=== PATIENT | female | born 1970 | race Caucasian/White ===

== ENCOUNTER → 2016-06-15 | Outpatient (CLI) | payer OTHER ==
[~2016-06-15] MED LIST: CIPRO250 MG PO; CYMBALTA20 M1 PO; LEVAQUIN750 M1 PO; MOBIC7.5 MG PO; Motrin,Rufen800 MG PO; PROTONIX40 MG PO; SUBOXONE 8 MG-1 EACH SL; VICODIN 500 MG-1 TAB PO
[2016-06-15 12:53] LABS: HEMATOCRIT 43.3 % (37.0-47.0); HEMOGLOBIN 14.3 g/dl (12.0-16.0); MEAN CELL VOLUME 94.3 fl (81.0-99.0); MEAN CORPUSCULAR HGB 31.2 pg (27.0-31.0); MEAN PLATELET VOLUME 9.3 fl (9.6-12.3); RED BLOOD COUNT 4.59 10*6/uL (4.10-5.10); RED CELL DISTRI WIDTH 12.6 % (0-14.5); WHITE BLOOD COUNT 6.2 10*3/uL (4.8-10.8)
[2016-06-15 13:02] LABS: URINE AMPHETAMINES < 1000 (1000ng/ml); URINE BARBITURATES < 200 (200ng/ml); URINE COCAINE < 300 (300ng/ml)
[2016-06-15 13:25] LABS: ALBUMIN 4.1 gm/dl (3.1-4.5); ALKALINE PHOSPHATASE 46 U/L (45-117); BILIRUBIN, TOTAL 0.3 mg/dl (0.2-1.0); BUN 9 mg/dl (7-24); CARBON DIOXIDE 27 mmol/L (21-32); CHLORIDE 104 mmol/L (98-107); CHOLESTEROL 225 mg/dL (<200); EST GLOM FILT AFRICAN AMERICAN > 60 ml/min; GLUCOSE 85 mg/dL (65-99); HDL CHOLESTEROL 58 mg/dl (40-60); LDL CHOLESTEROL 133 mg/dL (9-159); POTASSIUM 4.2 mmol/L (3.5-5.1); SGOT/AST 21 IU/L (3-35); SGPT/ALT 32 U/L (12-78); SODIUM 140 mmol/L (136-145); TOTAL PROTEIN 7.4 gm/dL (6.4-8.2); TRIGLYCERIDES 169 mg/dl (<150); VLDL CHOLESTEROL 34 mg/dL (6-40)
[2016-06-15 14:02] LABS: VITAMIN D, 25-HYDROXY 8.1 ng/mL (30-100)
== END | disposition home or self-care (01) ==
LOC: LAB 12:27
PROVIDERS: Internal Medicine
DX: B19.20 Unspecified viral hepatitis C without hepatic coma (principal); K21.9 Gastro-esophageal reflux disease without esophagitis; E55.9 Vitamin D deficiency, unspecified; E78.00 Pure hypercholesterolemia, unspecified; R53.83 Other fatigue; Z79.01 Long term (current) use of anticoagulants

== ENCOUNTER → 2016-06-28 | Outpatient (CLI) | payer OTHER ==
[2016-06-28 16:21] LABS: HEMATOCRIT 42.1 % (37.0-47.0); HEMOGLOBIN 13.9 g/dl (12.0-16.0); MEAN CELL VOLUME 93.1 fl (81.0-99.0); MEAN CORPUSCULAR HGB 30.8 pg (27.0-31.0); MEAN PLATELET VOLUME 9.3 fl (9.6-12.3); PLATELET COUNT AUTOMATED 292 10*3/uL (130-400); RED BLOOD COUNT 4.52 10*6/uL (4.10-5.10); RED CELL DISTRI WIDTH 12.3 % (0-14.5); WHITE BLOOD COUNT 6.9 10*3/uL (4.8-10.8)
[2016-06-28 16:35] LABS: URINE AMPHETAMINES < 1000 (1000ng/ml); URINE BARBITURATES < 200 (200ng/ml); URINE COCAINE < 300 (300ng/ml)
[2016-06-28 16:36] LABS: ALBUMIN 4.4 gm/dl (3.1-4.5); ALKALINE PHOSPHATASE 48 U/L (45-117); BILIRUBIN, DIRECT < 0.1 mg/dL (0.0-0.2); BILIRUBIN, TOTAL 0.4 mg/dl (0.2-1.0); BUN 8 mg/dl (7-24); CARBON DIOXIDE 28 mmol/L (21-32); CHLORIDE 107 mmol/L (98-107); EST GLOM FILT AFRICAN AMERICAN > 60 ml/min; GLUCOSE 91 mg/dL (65-99); POTASSIUM 4.2 mmol/L (3.5-5.1); SGOT/AST 12 IU/L (3-35); SGPT/ALT 25 U/L (12-78); SODIUM 141 mmol/L (136-145)
[2016-06-28 16:41] LABS: ATYPICAL LYMPHS 13 % (0-0); BASOPHIL # 0.1 10*3/uL (0-0.1); BASOPHILS 1 % (0-1); EOSINOPHIL # 0.4 10*3/uL (0-0.4); EOSINOPHILS 6 % (1-4); LYMPHOCYTE # 4.4 10*3/uL (1.3-4.4); MONOCYTE # 0.2 10*3/uL (0.1-1.0); NEUTROPHIL # 1.8 10*3/uL (2.3-7.9); NEUTROPHILS 26 % (47-73); PLATELET SUFFICIENCY NORMAL (NORMAL); TOTAL CELLS COUNTED 100 #CELLS
[2016-06-29 20:09] LABS: HEPATITIS C QUANTITATION 5760 IU/mL (.)
== END | disposition home or self-care (01) ==
LOC: LAB 15:51
PROVIDERS: Internal Medicine Gastroenterology
DX: B19.20 Unspecified viral hepatitis C without hepatic coma (principal)

== ENCOUNTER → 2016-11-10 | Outpatient (CLI) | payer OTHER ==
[2016-11-10 16:40] LABS: URINE AMPHETAMINES < 1000 (1000ng/ml); URINE BARBITURATES < 200 (200ng/ml); URINE COCAINE < 300 (300ng/ml)
== END | disposition home or self-care (01) ==
LOC: LAB 16:13
PROVIDERS: Internal Medicine
DX: F11.20 Opioid dependence, uncomplicated (principal)

== ENCOUNTER → 2017-05-03 | Outpatient (CLI) | payer OTHER ==
[2017-05-03 12:29] LABS: URINE AMPHETAMINES < 1000 (1000ng/ml); URINE BARBITURATES < 200 (200ng/ml); URINE BENZODIAZEPINES < 200 (200ng/ml); URINE CANNABINOIDS (THC) < 50 (50ng/ml); URINE COCAINE < 300 (300ng/ml); URINE METHADONE < 300 (300ng/ml); URINE OPIATES < 300 (300ng/ml); URINE PHENCYCLIDINE < 25 (25ng/ml)
== END | disposition home or self-care (01) ==
LOC: LAB 11:29
PROVIDERS: Internal Medicine
DX: F11.20 Opioid dependence, uncomplicated (principal)

== ENCOUNTER → 2017-11-27 | Outpatient (CLI) | payer OTHER ==
[2017-11-27 15:03] LABS: URINE AMPHETAMINES < 1000 (1000ng/ml); URINE BARBITURATES < 200 (200ng/ml); URINE BENZODIAZEPINES < 200 (200ng/ml); URINE CANNABINOIDS (THC) < 50 (50ng/ml); URINE COCAINE > 300 (300ng/ml); URINE METHADONE < 300 (300ng/ml); URINE OPIATES < 300 (300ng/ml)
[2017-11-27 15:05] LABS: URINE PHENCYCLIDINE < 25 (25ng/ml)
[2017-12-08 14:08] LABS: BENZOYLECGONINE (GC/MS) 1015 ng/mL (Cutoff=150)
== END | disposition home or self-care (01) ==
LOC: LAB 14:17
PROVIDERS: Internal Medicine
DX: F11.20 Opioid dependence, uncomplicated (principal)

== ENCOUNTER 2019-08-17 04:36 | Inpatient (IN) | payer OTHER ==
[2019-08-17] VITALS (7 sets, daily range): BP systolic 100–132; BP diastolic 61–87
[~2019-08-17] VITALS: Ht 172.7 cm; Wt 68.2 kg
--- NOTE | 2019-08-17 04:38 | NUR ---
PT PLACED ON BIAP /. 40% TOLERATING WELL. BREATHING TREATMENTS GIVEN IN LINE
--- NOTE | 2019-08-17 04:44 | NUR ---
Pt placed on bipap with settings of iap 14, eap of 7 and 40 percent fio2.
--- NOTE | 2019-08-17 04:53 | NUR ---
BIPAP CHANGED TO 12/6 PER ORDER
--- NOTE | 2019-08-17 04:57 | NUR ---
Pt states she is breathing better after being placed on bipap.
--- NOTE | 2019-08-17 04:58 | NUR ---
Pt has mutiple scabs all over legs , arms and back.No drainage noted from scabs and scabs are pink /red in color.
[2019-08-17 05:33] LABS: ARTERIAL BLOOD GAS PH 7.279 (7.35-7.45)
[2019-08-17 05:34] LABS: ACT PARTIAL THROMBO TIME 26.8 SECONDS (20.0-32.1)
[2019-08-17 05:39] LABS: ALBUMIN 3.6 gm/dl (3.1-4.5); BUN 13 mg/dl (7-24); CHLORIDE 110 mmol/L (98-107); CREATININE 0.74 mg/dL (0.55-1.02); POTASSIUM 3.8 mmol/L (3.5-5.1); SGOT/AST 14 IU/L (3-35); SGPT/ALT 18 U/L (12-78); SODIUM 139 mmol/L (136-145); TOTAL PROTEIN 7.4 gm/dL (6.4-8.2)
[2019-08-17 05:45] LABS: ALKALINE PHOSPHATASE 41 U/L (45-117); TROPONIN I < 0.015 ng/ml (<0.045)
[2019-08-17 05:53] LABS: BASO # 0.1 10*3/uL (0.0-0.1); BASO % 1.2 % (0.0-1.0); EOS # 1.4 10*3/uL (0.0-0.4); EOS % 13.9 % (1.0-4.0); HEMATOCRIT 41.4 % (37.0-47.0); LYMPH # 4.4 10*3/uL (1.3-4.4); LYMPH % 42.2 % (27.0-41.0); MEAN CELL VOLUME 97.2 fl (81.0-99.0); MEAN CORPUSCULAR HGB 30.5 pg (27.0-31.0); MEAN CORPUSCULAR HGB CONC 31.4 g/dl (33.0-37.0); MEAN PLATELET VOLUME 10.3 fl (9.6-12.3); MONO # 0.9 10*3/uL (0.1-1.0); MONO % 9.1 % (3.0-9.0); NEUT # 3.4 10*3/uL (2.3-7.9); NEUT % 33.3 % (47.0-73.0); PLATELET COUNT AUTOMATED 309 10*3/uL (130-400); RED BLOOD COUNT 4.26 10*6/uL (4.10-5.10); RED CELL DISTRI WIDTH 14.7 % (0-14.5); WHITE BLOOD COUNT 10.3 10*3/uL (4.8-10.8)
--- NOTE | 2019-08-17 06:07 | NUR ---
SPO2 100%. O2 DECREASED TO 30%
--- NOTE | 2019-08-17 08:00 | NUR ---
A 49, admitted to 5E, under the services of REINA Du DO with a diagnosis of COPD EXACERBATION . Chief complaint is SHORTNESS OF BREATH. Patient arrived via bed from ER. Monitor applied. Initial assessment completed. Vital signs taken and recorded. REINA DU DO notified of admission to the unit. Orders received. See assessment for past medical history, medications and allergies. Patient and/or family oriented to unit. [facility] visitation policy reviewed. Clothing/patient valuable form completed. SAÚL IRIZARRY
--- NOTE | 2019-08-17 08:20 | NUR ---
UNABLE [facility]ONCILE MEDS. PT CURRENTLY ON BIPAP 02/28 @ 30%.SPO2 99%.
[2019-08-17 09:29] LABS: ARTERIAL BLOOD GAS PH 7.321 (7.35-7.45)
--- NOTE | 2019-08-17 09:31 | NUR ---
08:00 PT ARRIVED FROM DEM TO 531. PT ON 3 L NC. SPO2 100%. PT SOB WITH RR APPRX 28-30. PT PLACED ON BIPAP 02/28 30%. TOERATED WELL. NO SOB. RESPS REGULAR AND UNLABORED. PT RESTING COMFORTABLY. DA GIVEN. BBSs WITH SCATTERED RHONCHI. GOOD AERATION. ABG TO FOLLOW. PT PLACED ON PULSE OXIMETER MONITOR.
--- NOTE | 2019-08-17 09:50 | NUR ---
DR MENDOZA NOTIFIED OF NEW CONSULT FOR EXACERBATION OF COPD.ORDERS RECIEVED FOR BIPAP 10/01 AND ABG'S 2 HRS FOLLOWING CHANGE.
--- NOTE | 2019-08-17 12:06 | NUR ---
10:30 PT ON BIPAP. PRESSURES INCREASED TO 18/[address] MENDOZA. AT 10:40, PT TOOK BIPAP OFF TO USE BEDSIDE COMMODE. PT PLACED ON 3 L NC. PT REQUESTES TO BE LEFT OFF OF BIPAP TO MAKES CALLS TO FAMILY, ORDER BREAKFAST AND EST. RESPS HAVE IMPROVED. PT STATES HER BREATHING IS BETTER THAN THIS AM AND SHE HAS CASTELLON. PT AGREES TO GO ON BIPAP AFTER LUNCH.
[2019-08-17] MEDS ORDERED: CLONAZEPAM1 MG PO (12:53)
[2019-08-17] MEDS ORDERED: AMITRIPTYLINE50 MG PO (12:54)
[2019-08-17] MEDS ORDERED: IBUPROFEN400 MG PO (12:54)
[2019-08-17] MEDS ORDERED: PERMETHRIN60 GM T (12:55)
[2019-08-17] MEDS ORDERED: PROAIR HFA8.5 GM INH (12:56)
[2019-08-17] MEDS ORDERED: SPIRIVA -- 3018 MCG INH (12:57)
--- NOTE | 2019-08-17 13:01 | NUR ---
MEDS RECONCILED AT BEDSIDE WITH PT AND MED CLAIM HISTTORY.
--- NOTE | 2019-08-17 13:27 | NUR ---
13:OO PT INSTRUCTED ON USE OF FLUTTER VALVE. PT DEMONSTRATED PROPER TECHNIQUE. PT INSTRUCTED TO USE Q 1-2 HR W/A AND WHEN OFF OF BIPAP X10 AT LEAST.
--- NOTE | 2019-08-17 13:29 | NUR ---
13:15 PT PLACED ON BIPAP. TOLERATING WELL AT 18/10. SYSTEM CHECKED AND FX'ING. PT ENCOURAGED TO USE A MINIMUM OF 2 HRS. ABG TO FOLLOW. RESPS REGULAR AND UNLABORED.
[2019-08-17 15:37] LABS: ARTERIAL BLOOD GAS PH 7.368 (7.35-7.45)
--- NOTE | 2019-08-17 15:52 | NUR ---
DR MENDOZA NOTIFIED OF ABG RESULTS PER RT CHANTELLE.PT TO REMAIN ON BIPAP "MOST OF THE TIME". PT CURRENTLY REFUSING BIPAP AT THIS TIME. PT STATES SHE "THIRSTY AND HUNGRY". WILL TRY IN ONE HOUR OAFTER PT EATS. PT CURRENTLY GOING TO ORDER FOOD.
--- NOTE | 2019-08-17 16:52 | NUR ---
PT SITTING IN BED ANXIOUS,TEARFUL.LABILE.XANAX 0.25 MG GIVEN FOR ANXIETY.EDUCATION PROVIDED AT THIS TIME AND EXPLAINED TO PT THAT SHE SHOULD BE WEARING O2. UP TO BSC. PT STATES AT THIS TIME "I CAN'T HEAR YOU,I'M DEAF IN THIS EAR" INDICATING HER RIGHT SIDE.I THEN TRIED TO EXPLAIN THAT SHE CANNOT LIFT HER MASK UP TO DRINK WHILE ON BIPAP D/T ASPIRATION. WHEN I SPOKE LOUDER FOR HER TO BE ABLE TO HEAR ME, PT THEN STATES THAT "I WAS YELLING AT HER". I EXPLAINED I WAS NOT, THAT I WAS SPEAKING UP SO SHE COULD HEAR ME. PT TEARFULLY SAID "NO! STOP YELLING ME." I LEFT THE ROOM AT THIS TIME TO DESCALATE AND ALOWED THE PAMELLISSA TO ASSIST HER.WILL CONTINUE TO MONITOR.RT NOTIFIED TO PLACE PT ON BIPAP.
--- NOTE | 2019-08-17 17:54 | NUR ---
15:30 PT TAKEN OFF OF BIPAP. PLACED ON 2 L NC. RESPS SLIGHTLY LABORED.
--- NOTE | 2019-08-17 17:55 | NUR ---
17:35 PT PLACED ON BIPAP. TOLERATING WELL. RESPS REGULAR AND UNLABORED. SYSTEM CHECKED AND FX'ING. BEDSIDE PULSE OX SET UP.
--- NOTE | 2019-08-17 20:09 | NUR ---
Pt taken off BiPap and placed on 2L NC. SpO2 100%
--- NOTE | 2019-08-17 21:10 | NUR ---
PATIENTS QUESTIONS AND CONCERN WERE ANSWERED AT THIS TIME. PATIENT PROVIDED WITH SPUTUM FOR INCREASED PRODUCTION. PATIENT STATED THAT SHE FELT A LOT BETTER THAN WHAT SHE HAS IN DAYS, STATES THAT THE BIPAP IS REALLY HELOING HER. PATIENT IS CURRENTLY ON 2L NC, TOLERATING WELL. NO OVERT DISTRESS NOTED. PROVIDED WITH BOX LUNCH AND JUICE. CALL LIGHT LEFT WITHIN REACH.
--- NOTE | 2019-08-17 21:11 | NUR ---
PATIENT MEDICATEDW WITH RESTORIL FOR C/O INSOMNIA. WILL MONITOR
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
--- NOTE | 2019-08-17 23:15 | NUR ---
Pt placed on BiPap 18/10. FiO2 30%. SpO2 100%. Alarms on and audible.
[2019-08-18] VITALS: BP 100/55
--- NOTE | 2019-08-18 03:13 | NUR ---
PT TAKEN OFF NIV. PLACED BACK ON 2LNC
--- NOTE | 2019-08-18 06:15 | NUR ---
PATIENT MEDICATEDW ITH NORCO AND ZOFRAN FOR C/O NAUSEA AND HEADACHE 12/03. WILL MONITOR
[2019-08-18 06:41] LABS: BASO % 0.1 % (0.0-1.0); EOS # 0.1 10*3/uL (0.0-0.4); EOS % 0.5 % (1.0-4.0); LYMPH # 1.8 10*3/uL (1.3-4.4); MEAN CELL VOLUME 94.6 fl (81.0-99.0); MEAN CORPUSCULAR HGB 30.8 pg (27.0-31.0); MEAN CORPUSCULAR HGB CONC 32.6 g/dl (33.0-37.0); MEAN PLATELET VOLUME 10.2 fl (9.6-12.3); MONO # 0.7 10*3/uL (0.1-1.0); MONO % 4.5 % (3.0-9.0); NEUT # 12.4 10*3/uL (2.3-7.9); NEUT % 82.3 % (47.0-73.0); PLATELET COUNT AUTOMATED 329 10*3/uL (130-400); RED CELL DISTRI WIDTH 14.8 % (0-14.5)
[2019-08-18 06:59] LABS: BUN 19 mg/dl (7-24); CHLORIDE 108 mmol/L (98-107); CREATININE 0.63 mg/dL (0.55-1.02); SODIUM 138 mmol/L (136-145)
[2019-08-18 08:00] VITALS: BP 98/58
[2019-08-18 12:00] VITALS: BP 122/62
[2019-08-18 16:00] VITALS: BP 106/63
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
[2019-08-18 20:00] VITALS: BP 93/54
--- NOTE | 2019-08-18 21:32 | NUR ---
PATIENT MEDICATED WITH TYLENOL FOR C/O HEADACHE. WILL MONITOR
--- NOTE | 2019-08-18 21:33 | NUR ---
PATIENT MEDICATED WITH RESTORIL FOR C/O INSOMNIA. WILL MONITOR
--- NOTE | 2019-08-18 22:32 | NUR ---
TYLENOL EFFECTIVE FOR HEADACHE
[2019-08-19] VITALS: BP 90/48
[2019-08-19 00:10] VITALS: BP 98/58
--- NOTE | 2019-08-19 03:52 | NUR ---
PATIENT REQUEST TO COME OFF BIPAP, COMPALINS OF SORE THROAT, PLACED ON 2 L/M NC.
--- NOTE | 2019-08-19 05:30 | NUR ---
PATIENT MEDICATEDW ITH TYLENOL FOR C/O HEADACHE. WILL MONITOR
--- NOTE | 2019-08-19 06:30 | NUR ---
TYLENOL EFFECTIVE FOR HEADACHE.
[2019-08-19 08:00] VITALS: BP 102/62
--- NOTE | 2019-08-19 08:00 | NUR ---
IN [place] ROOM TO COMPLETE ASSESSMENT, PT STATES THAT SHE IS SOB WHEN SHE IS MOVING AROUND, BUT WHILE JUST LAYING SHE IS NOT. SHE DOES HAVE A PRODUCTIVE COUGH. PT STATES THAT SHE HAS NOT HAD A BOWEL MOVEMENT SINCE BEING HERE AND WANTS SOMETHING TO HELP HER GO. PT SITTING UP EATING BREAKFAST. CALL LIGHT WITHIN REACH, WILL CONTINUE TO MONITOR
--- NOTE | 2019-08-19 08:59 | NUR ---
PT GIVEN PRN DULCOLAX PO AT THIS TIME FOR COMPLAINTS OF CONSTIPATION, WILL MONITOR FOR EFFECTIVENESS
--- NOTE | 2019-08-19 09:10 | NUR ---
DR SALGADO IN TO SEE PATIENT
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
[2019-08-19 09:53] LABS: BASO % 0.2 % (0.0-1.0); EOS # 0.1 10*3/uL (0.0-0.4); EOS % 1.5 % (1.0-4.0); HEMATOCRIT 34.3 % (37.0-47.0); LYMPH # 3.1 10*3/uL (1.3-4.4); LYMPH % 32.2 % (27.0-41.0); MEAN CORPUSCULAR HGB 30.7 pg (27.0-31.0); MEAN CORPUSCULAR HGB CONC 32.4 g/dl (33.0-37.0); MEAN PLATELET VOLUME 10.1 fl (9.6-12.3); MONO # 0.5 10*3/uL (0.1-1.0); MONO % 5.4 % (3.0-9.0); NEUT # 5.8 10*3/uL (2.3-7.9); NEUT % 60.5 % (47.0-73.0); PLATELET COUNT AUTOMATED 300 10*3/uL (130-400); RED BLOOD COUNT 3.61 10*6/uL (4.10-5.10); WHITE BLOOD COUNT 9.6 10*3/uL (4.8-10.8)
[2019-08-19 09:59] LABS: BUN 22 mg/dl (7-24); CHLORIDE 108 mmol/L (98-107); CREATININE 0.79 mg/dL (0.55-1.02); POTASSIUM 3.3 mmol/L (3.5-5.1); SODIUM 140 mmol/L (136-145)
--- NOTE | 2019-08-19 10:34 | NUR ---
Shift chart check completed.
--- NOTE | 2019-08-19 10:57 | NUR ---
Dr. Mckay notified of wound care recommendations.
[2019-08-19 12:00] VITALS: BP 92/63
--- NOTE | 2019-08-19 14:52 | NUR ---
Nutritional Support Services Note: Appetite is good for meals. She is eating 75-100% of all meals. Regular diet as ordered. She has multiple scattered scabs on bilateral legs. Continue to encourage good intake of meals. Will follow as needed. Paty Brooks Rdn Ld
--- NOTE | 2019-08-19 15:52 | NUR ---
Senior Program Analyst in to talk to patient. Patient states lives at HOME with ALONE. There are NO steps in the home. Physician: DR MACK [facility] Home health services: NONE Patient's level of ADLs: INDEPENDENT Patient has working utilities: YES DME: NONE Follow-up physician's appointment after d/c: WILL BE MADE BY HOSPITALIST NURSE DIRECTOR ON DISCHARGE Does patient want to access PORTAL?: NO Discharge plan PT LIVES AT HOME ALONE AND IS INDEPENDENT IN HER CARE. DENIES SHE WILL HAVE NEEDS ON DISCHARGE. PLAN IS TO RETURN HOME WHEN MEDICALLY STABLE. WILL CONTINUE TO FOLLOW. STATES SHE WILL HAVE A RIDE HOME. . TATIANA STOVER
[2019-08-19 16:00] VITALS: BP 99/60
--- NOTE | 2019-08-19 16:00 | NUR ---
Patient resting quietly with no c/o discomfort. Respirations easy and regular. Vital signs stable. No overt distress. DORON WOLF
--- NOTE | 2019-08-19 19:30 | NUR ---
Patient is refusing use of NIV for this evening
[2019-08-19 20:00] VITALS: BP 98/65
--- NOTE | 2019-08-19 21:10 | NUR ---
MEDICATED WITH RESTORIL FOR SLEEPLESSNESS AND MILK OF MAG FOR C/O CONSTIPATION
--- NOTE | 2019-08-19 21:19 | NUR ---
NICOTINE PATCH REMOVED PER PATIENT REQUEST
--- NOTE | 2019-08-19 22:10 | NUR ---
RESTORIL EFFECTIVE. PATIENT SLEEPING, UNABLE TO ASSESS MOM EFFECTIVENESS
[2019-08-20] VITALS: BP 90/49
[2019-08-20 06:40] LABS: BASO % 0.1 % (0.0-1.0); HEMATOCRIT 34.9 % (37.0-47.0); LYMPH # 2.1 10*3/uL (1.3-4.4); LYMPH % 28.1 % (27.0-41.0); MEAN CELL VOLUME 94.8 fl (81.0-99.0); MEAN CORPUSCULAR HGB 30.2 pg (27.0-31.0); MEAN CORPUSCULAR HGB CONC 31.8 g/dl (33.0-37.0); MEAN PLATELET VOLUME 10.1 fl (9.6-12.3); MONO # 0.4 10*3/uL (0.1-1.0); MONO % 5.4 % (3.0-9.0); NEUT % 66.1 % (47.0-73.0); PLATELET COUNT AUTOMATED 313 10*3/uL (130-400); RED BLOOD COUNT 3.68 10*6/uL (4.10-5.10); WHITE BLOOD COUNT 7.5 10*3/uL (4.8-10.8)
[2019-08-20 06:54] LABS: BUN 22 mg/dl (7-24); CHLORIDE 108 mmol/L (98-107); CREATININE 0.69 mg/dL (0.55-1.02); POTASSIUM 4.1 mmol/L (3.5-5.1); SODIUM 139 mmol/L (136-145)
[2019-08-20 08:00] VITALS: BP 95/58
--- NOTE | 2019-08-20 08:12 | NUR ---
COMPLETING ASSESSMENT AT THIS TIME, PT DENIES BEING SOB OR ANY CHEST PAIN, NVD. PT IS READY TO GO HOME AND BE WITH HER "EMOTIONAL SUPPORT DOG". PT SITTING UP IN BED EATING BREAKFAST, CALL LIGHT WITHIN REACH, WILL CONTINUE TO MONITOR
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
--- NOTE | 2019-08-20 09:26 | NUR ---
DR MENDOZA IN THE ROOM AND STATES PATIENT IS TO BE DISCHARGED TOMORROW. CALLED DR VERGARA TO LET HER KNOW, AND STATES ITS STILL FINE TO KEEP ANTIBIOTIC PO
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
[2019-08-20] MEDS ORDERED: PREDNISONE10 MG PO (11:44)
[2019-08-20] MEDS ORDERED: LEVOFLOXACIN500 MG PO (11:44)
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
--- NOTE | 2019-08-20 12:05 | NUR ---
PT LEFT FLOOR AT THIS TIME WITH ALL OF HER BELONGINGS. SHE VOICES NO QUESTIONS.
== END 2019-08-20 12:05 | disposition home or self-care (01) | DRG 720 ==
LOC: ED 04:36 → 5E 06:01 → EDHOLD 06:01 → 5E 07:03
PROVIDERS: Emergency Medicine Emergency Medical Services; Family Medicine; Internal Medicine Critical Care Medicine; Registered Nurse; Student in an Organized Health Care Education/Training Program; ADMIT Family Medicine
PROC: 5A09357 Assistance with Respiratory Ventilation, Less than 24 Consecutive Hours, Continuous Positive Airway Pressure (ICD-10-PCS; principal; 2019-08-17)
PROC: 5A09357 Assistance with Respiratory Ventilation, Less than 24 Consecutive Hours, Continuous Positive Airway Pressure (ICD-10-PCS; 2019-08-18)
PROC: 5A09357 Assistance with Respiratory Ventilation, Less than 24 Consecutive Hours, Continuous Positive Airway Pressure (ICD-10-PCS; 2019-08-19)
DX: A41.9 Sepsis, unspecified organism (principal); R65.20 Severe sepsis without septic shock; J96.01 Acute respiratory failure with hypoxia; J44.1 Chronic obstructive pulmonary disease with (acute) exacerbation; M79.7 Fibromyalgia; F41.1 Generalized anxiety disorder; E87.8 Other disorders of electrolyte and fluid balance, not elsewhere classified; E83.41 Hypermagnesemia; F32.9 Major depressive disorder, single episode, unspecified; R73.9 Hyperglycemia, unspecified; J96.02 Acute respiratory failure with hypercapnia; E87.5 Hyperkalemia; J20.9 Acute bronchitis, unspecified; J44.0 Chronic obstructive pulmonary disease with (acute) lower respiratory infection; R21 Rash and other nonspecific skin eruption; Z88.1 Allergy status to other antibiotic agents; Z88.2 Allergy status to sulfonamides; Z88.8 Allergy status to other drugs, medicaments and biological substances; Z98.51 Tubal ligation status

== ENCOUNTER 2019-09-24 23:20 | Inpatient (IN) | payer OTHER ==
[~2019-09-24] VITALS: Ht 172.7 cm; Wt 64.9 kg
[~2019-09-24 23:20] MED LIST changes: +AMITRIPTYLINE50 MG PO; +CLONAZEPAM1 MG PO; +IBUPROFEN400 MG PO; +LEVOFLOXACIN500 MG PO; +PERMETHRIN60 GM T; +PREDNISONE10 MG PO; +PROAIR HFA8.5 GM INH; +SPIRIVA -- 3018 MCG INH
[2019-09-24 23:31] VITALS: BP 131/82
[2019-09-25 00:32] LABS: BASO # 0.1 10*3/uL (0.0-0.1); BASO % 0.9 % (0.0-1.0); EOS # 0.5 10*3/uL (0.0-0.4); EOS % 6.7 % (1.0-4.0); HEMATOCRIT 43.8 % (37.0-47.0); LYMPH # 3.3 10*3/uL (1.3-4.4); LYMPH % 42.2 % (27.0-41.0); MEAN CELL VOLUME 90.3 fl (81.0-99.0); MEAN CORPUSCULAR HGB 29.5 pg (27.0-31.0); MEAN CORPUSCULAR HGB CONC 32.6 g/dl (33.0-37.0); MEAN PLATELET VOLUME 9.4 fl (9.6-12.3); MONO # 0.7 10*3/uL (0.1-1.0); MONO % 8.4 % (3.0-9.0); NEUT # 3.3 10*3/uL (2.3-7.9); NEUT % 41.5 % (47.0-73.0); PLATELET COUNT AUTOMATED 451 10*3/uL (130-400); RED BLOOD COUNT 4.85 10*6/uL (4.10-5.10); RED CELL DISTRI WIDTH 13.3 % (0-14.5); WHITE BLOOD COUNT 7.9 10*3/uL (4.8-10.8)
[2019-09-25 00:50] LABS: ALBUMIN 4.4 gm/dl (3.1-4.5); ALKALINE PHOSPHATASE 86 U/L (45-117); BUN 16 mg/dl (7-24); CHLORIDE 101 mmol/L (98-107); POTASSIUM 3.6 mmol/L (3.5-5.1); SGOT/AST 17 IU/L (3-35); SGPT/ALT 18 U/L (12-78); SODIUM 133 mmol/L (136-145); TOTAL PROTEIN 8.6 gm/dL (6.4-8.2); TROPONIN I < 0.015 ng/ml (<0.045)
[2019-09-25 02:14] VITALS: BP 144/82
[2019-09-25 03:50] VITALS: BP 97/75
[2019-09-25] MEDS ORDERED: KENALOG 0.1%80 GM T (04:18)
[2019-09-25 06:29] LABS: HEMATOCRIT 41.1 % (37.0-47.0); MEAN CELL VOLUME 93.2 fl (81.0-99.0); MEAN CORPUSCULAR HGB CONC 31.1 g/dl (33.0-37.0); MEAN PLATELET VOLUME 9.8 fl (9.6-12.3); PLATELET COUNT AUTOMATED 381 10*3/uL (130-400); RED BLOOD COUNT 4.41 10*6/uL (4.10-5.10); RED CELL DISTRI WIDTH 13.3 % (0-14.5); WHITE BLOOD COUNT 7.6 10*3/uL (4.8-10.8)
[2019-09-25 06:30] LABS: ALBUMIN 3.7 gm/dl (3.1-4.5); ALKALINE PHOSPHATASE 73 U/L (45-117); BUN 16 mg/dl (7-24); CHLORIDE 104 mmol/L (98-107); CHOLESTEROL 165 mg/dL (<200); LIPASE 43 U/L (73-393); POTASSIUM 3.5 mmol/L (3.5-5.1); SGOT/AST 12 IU/L (3-35); SGPT/ALT 17 U/L (12-78); SODIUM 134 mmol/L (136-145); TOTAL PROTEIN 7.6 gm/dL (6.4-8.2); TRIGLYCERIDES 42 mg/dl (<150); VLDL CHOLESTEROL 8 mg/dL (6-40)
[2019-09-25 06:35] LABS: FREE T4 1.11 ng/dl (0.76-1.46); HDL CHOLESTEROL 52 mg/dl (40-60); LDL CHOLESTEROL 105 mg/dL (9-159); THYROID STIM HORMONE (HS) 0.482 uIU/ml (0.358-4.75)
[2019-09-25 07:12] LABS: PLATELET SUFFICIENCY NORMAL (NORMAL); TOTAL CELLS COUNTED 100 #CELLS
[2019-09-25 07:37] LABS: VITAMIN D, 25-HYDROXY 26.3 ng/mL (30-100)
[2019-09-25 10:00] VITALS: BP 112/62
[2019-09-25 11:01] LABS: BILIRUBIN NEGATIVE (NEGATIVE); BLOOD 3+ (NEGATIVE); CLARITY SL CLOUDY (CLEAR); COLOR YELLOW (YELLOW); GLUCOSE NEGATIVE (NEGATIVE); KETONE 3+ (NEGATIVE); LEUKO ESTERASE NEGATIVE (NEGATIVE); NITRITE NEGATIVE (NEGATIVE); SPECIFIC GRAVITY 1.025 (1.005-1.030); UROBILINOGEN 0.2 E.U./dl (0.2-1.0)
[2019-09-25 11:03] LABS: URINE AMPHETAMINES < 1000 (1000ng/ml); URINE BARBITURATES < 200 (200ng/ml); URINE BENZODIAZEPINES < 200 (200ng/ml); URINE CANNABINOIDS (THC) > 50 (50ng/ml); URINE COCAINE > 300 (300ng/ml); URINE METHADONE < 300 (300ng/ml); URINE OPIATES < 300 (300ng/ml); URINE PHENCYCLIDINE < 25 (25ng/ml)
[2019-09-25 11:08] LABS: BACTERIA TRACE; MUCOUS TRACE
[2019-09-25 12:00] VITALS: BP 113/67
[2019-09-25 16:00] VITALS: BP 110/64; BP 130/88
[2019-09-25 20:00] VITALS: BP 109/52
[2019-09-26] VITALS: BP 102/72
[2019-09-26 06:37] LABS: BUN 15 mg/dl (7-24); CHLORIDE 108 mmol/L (98-107); CREATININE 0.59 mg/dL (0.55-1.02); POTASSIUM 4.1 mmol/L (3.5-5.1); SODIUM 139 mmol/L (136-145)
[2019-09-26 06:38] LABS: BASO % 0.1 % (0.0-1.0); EOS % 0.1 % (1.0-4.0); LYMPH # 1.8 10*3/uL (1.3-4.4); LYMPH % 24.8 % (27.0-41.0); MEAN CELL VOLUME 92.1 fl (81.0-99.0); MEAN CORPUSCULAR HGB 29.2 pg (27.0-31.0); MEAN CORPUSCULAR HGB CONC 31.7 g/dl (33.0-37.0); MEAN PLATELET VOLUME 10.1 fl (9.6-12.3); MONO # 0.4 10*3/uL (0.1-1.0); MONO % 5.1 % (3.0-9.0); NEUT % 69.3 % (47.0-73.0); PLATELET COUNT AUTOMATED 373 10*3/uL (130-400); RED CELL DISTRI WIDTH 13.5 % (0-14.5); WHITE BLOOD COUNT 7.2 10*3/uL (4.8-10.8)
[2019-09-26 08:00] VITALS: BP 98/61
== END 2019-09-26 10:30 | disposition left against medical advice (07) | DRG 140 ==
LOC: ED 23:20 → EDHOLD 09-25 01:59 → 4E 09-25 01:59
PROVIDERS: Emergency Medicine; Internal Medicine; Student in an Organized Health Care Education/Training Program; ADMIT Internal Medicine
DX: J44.1 Chronic obstructive pulmonary disease with (acute) exacerbation (principal); K29.00 Acute gastritis without bleeding; F41.1 Generalized anxiety disorder; R21 Rash and other nonspecific skin eruption; M79.7 Fibromyalgia; F17.210 Nicotine dependence, cigarettes, uncomplicated; F43.10 Post-traumatic stress disorder, unspecified; E83.51 Hypocalcemia; D47.3 Essential (hemorrhagic) thrombocythemia; K59.00 Constipation, unspecified; F33.2 Major depressive disorder, recurrent severe without psychotic features; D72.820 Lymphocytosis (symptomatic); Z53.29 Procedure and treatment not carried out because of patient's decision for other reasons; E87.1 Hypo-osmolality and hyponatremia; R00.0 Tachycardia, unspecified; E44.1 Mild protein-calorie malnutrition; Z71.6 Tobacco abuse counseling; Z88.2 Allergy status to sulfonamides; Z88.1 Allergy status to other antibiotic agents; Z91.018 Allergy to other foods; Z98.51 Tubal ligation status; Z87.442 Personal history of urinary calculi; Z80.8 Family history of malignant neoplasm of other organs or systems; Z81.8 Family history of other mental and behavioral disorders; Z68.21 Body mass index [BMI] 21.0-21.9, adult

== ENCOUNTER 2020-10-04 11:36 | Emergency (ER) | payer OTHER ==
[~2020-10-04] VITALS: Wt 72.6 kg
[~2020-10-04 11:36] MED LIST changes: +KENALOG 0.1%80 GM T
== END 2020-10-04 11:59 | disposition left against medical advice (07) ==
LOC: ED 11:36
DX: R06.02 Shortness of breath (principal); Z53.21 Procedure and treatment not carried out due to patient leaving prior to being seen by health care provider